=== PATIENT | male | born 1970 | race Caucasian/White ===

== ENCOUNTER 2018-06-12 14:04 | Emergency (ER) | payer OTHER ==
[~2018-06-12] VITALS: Ht 185.4 cm; Wt 108.9 kg
[2018-06-12] MEDS ORDERED: NORFLEX100MG PO (15:02)
[2018-06-12] MEDS ORDERED: KETO10TA2 PO (15:02)
[2018-06-14] MEDS ORDERED: MAPAP500 MG PO (13:44)
== END 2018-06-12 15:07 | disposition home or self-care (01) ==
LOC: ER 14:04
DX: S30.0XXA Contusion of lower back and pelvis, initial encounter (principal); S80.02XA Contusion of left knee, initial encounter; S80.01XA Contusion of right knee, initial encounter; W18.39XA Other fall on same level, initial encounter; Y93.89 Activity, other specified; Y92.89 Other specified places as the place of occurrence of the external cause; Y99.8 Other external cause status